=== PATIENT | female | born 1995 | race Two or more races ===

== ENCOUNTER 2017-06-03 21:48 | Emergency (ER) | payer MEDICAID ==
[~2017-06-03] VITALS: Ht 157.5 cm; Wt 86.5 kg
[2017-06-03 21:57] VITALS: BP 153/104
[2017-06-03] MEDS ORDERED: SILVER SULF. CRM 1% , 25GM ONE (22:10)
[2017-06-03] MEDS ORDERED: HYDROcodone/APAP 5/325 TABLET ONE (22:16)
[2017-06-03] MEDS ORDERED: IBUPROFEN 200 MG TABLET ONE (22:16)
[2017-06-03] MEDS ORDERED: ONDANSETRON ODT 4 MG ONE (22:17)
[2017-06-03] MEDS ORDERED: IBUPROFEN 200 MG TABLET PO ONE (22:30)
[2017-06-03] MEDS ORDERED: HYDROcodone/APAP 5/325 TABLET PO ONE (22:30)
[2017-06-03] MEDS ORDERED: SILVER SULF. CRM 1% , 25GM TP ONE (22:30)
[2017-06-03] MEDS ORDERED: ONDANSETRON ODT 4 MG PO ONE (22:30)
== END 2017-06-03 23:02 | disposition home or self-care (01) ==
LOC: ED 23:00
DX: T24.211A Burn of second degree of right thigh, initial encounter (principal); T31.0 Burns involving less than 10% of body surface; X10.1XXA Contact with hot food, initial encounter; Y93.89 Activity, other specified; Y92.89 Other specified places as the place of occurrence of the external cause; Y99.8 Other external cause status
CPT/HCPCS: 16020; 99284; Q0162